=== PATIENT | female | born 1985 | race Caucasian/White ===

== ENCOUNTER 2017-01-02 15:38 | Emergency (ER) | payer OTHER ==
[~2017-01-02] VITALS: Ht 170.2 cm; Wt 82.7 kg
[2017-01-02 20:28] VITALS: BP 122/82
== END 2017-01-02 20:28 | disposition home or self-care (01) ==
LOC: ED 15:38
DX: L02.215 Cutaneous abscess of perineum (principal); E11.9 Type 2 diabetes mellitus without complications; Z79.899 Other long term (current) drug therapy
CPT/HCPCS: J2001; J2270; Q0162

== ENCOUNTER 2017-01-04 07:11 | Emergency (ER) | payer OTHER ==
[~2017-01-04] VITALS: Ht 170.2 cm; Wt 83.1 kg
[2017-01-04 08:36] VITALS: BP 108/76
== END 2017-01-04 08:36 | disposition home or self-care (01) ==
LOC: ED 07:11
DX: Z48.01 Encounter for change or removal of surgical wound dressing (principal)

== ENCOUNTER 2019-06-09 06:55 | Emergency (ER) | payer OTHER ==
[~2019-06-09] VITALS: Ht 170.2 cm; Wt 89.4 kg
[2019-06-09 07:06] VITALS: Ht 170.2 cm; Wt 89.4 kg
[2019-06-09 07:43] LABS: CALCIUM 8.9 mg/dL (8.5-10.1); CARBON DIOXIDE 27.8 mmol/L (21-32); CHLORIDE SERUM 102 mmol/L (98-107); CREATININE SERUM 0.7 mg/dL (0.6-1.0); GFR1 > 60 mL/min; GLUCOSE SERUM 97 mg/dL (74-106); POTASSIUM SERUM 4.4 mmol/L (3.5-5.1); SODIUM SERUM 138 mmol/L (136-145)
[2019-06-09 07:45] LABS: BASOPHIL % 0.1 % (0-2); PLATELET COUNT 355 x10^3mcL (130-400); RED CELL DISTRIBUTION WIDTH 13.2 % (11.5-14.5)
[2019-06-09 07:48] LABS: ALKALINE PHOSPHATASE 86 U/L (46-116); ALT/SGPT 37 U/L (14-59); AMYLASE 47 U/L (25-115); AST/SGOT 17 U/L (15-37); BILIRUBIN TOTAL 0.5 mg/dL (0.20-1.00); LIPASE 76 IU/L (73-393); TOTAL PROTEIN, SERUM 7.9 g/dL (6.4-8.2)
[2019-06-09 10:15] VITALS: BP 109/74
== END 2019-06-09 10:15 | disposition home or self-care (01) ==
LOC: ED 06:55
PROVIDERS: Specialist
DX: D25.9 Leiomyoma of uterus, unspecified (principal); Z98.890 Other specified postprocedural states; Z98.84 Bariatric surgery status
CPT/HCPCS: J1885; J7030